=== PATIENT | female | born 1990 | race American Indian/Alaskan Native ===

== ENCOUNTER 2019-06-18 17:40 | Emergency (ER) | payer SELFPAY ==
[2019-06-18] MEDS ORDERED: diphenhydrAMINE 50 MG/ML VIAL IV ONE (17:48)
[2019-06-18] MEDS ORDERED: FAMOTIDINE 20 MG/2 ML INJ IV ONE (17:48)
[2019-06-18] MEDS ORDERED: dexAMETHasone 20 MG/5 ML VIAL IV ONE (17:48)
[2019-06-18] MEDS ORDERED: SODIUM CHLORIDE 0.9% 500 ML 500 ML IV ONE (17:48)
--- NOTE | 2019-06-18 17:51 | Event Note ---
ED Screening Note ED Screening Note: 29 y/o female comes in for urticaria times 3 weeks. History of HTN and multiple allergies. This initial assessment/diagnostic orders/clinical plan/treatment(s) is/are subject to change based on patients health status, clinical progression and re- assessment by fellow clinical providers in the ED. Further treatment and workup at subsequent clinical providers discretion. Patient/guardian urged not to elope from the ED as their condition may be serious if not clinically assessed and managed. Initial orders include: dex,pepcid benadryl and normal saline
[2019-06-18 19:12] LABS: Basophils % (Auto) 0.2 % (0.0-1.8); Eosinophils # (Auto) 0.3 K/mm3 (0.0-0.4); Hematocrit 35.2 % (30.3-42.9); Hemoglobin 11.6 gm/dl (10.1-14.3); Lymphocytes # (Auto) 1.5 K/mm3 (1.2-5.4); Lymphocytes % (Auto) 29.8 % (13.4-35.0); Mean Corpuscular HGB Conc 33 % (30-34); Mean Corpuscular Volume 82 fl (79-97); Monocytes # (Auto) 0.2 K/mm3 (0.0-0.8); Monocytes % (Auto) 4.7 % (0.0-7.3); Platelet Count 154 K/mm3 (140-440); Red Blood Count 4.31 M/mm3 (3.65-5.03); Red Cell Distribution Width 13.9 % (13.2-15.2)
--- NOTE | 2019-06-18 19:42 | Emergency Department Report ---
ED General Adult HPI - General Chief complaint: Allergic Reaction Stated complaint: CHEST PAIN, HIVE ALL OVER BODY FROM HEAD TO TOE Time Seen by Provider: 06/18/19 17:48 Source: patient Mode of arrival: Ambulatory Limitations: No Limitations - History of Present Illness Initial comments: Mr. Rock is a 29-year-old -[place] female with a history contact dermatitis. States rash, generalized x 3 weeks, hx of same 2 yrs ago, pt denies sob no wheezing. Has secondary complaint for vaginal yeast, white cottage cheese discharge. Onset/Timin -: week(s) Location: chest, back, upper extremity, lower extremity Severity scale (0 -10): 4 Quality: other (itching ) Consistency: constant Improves with: medication Worsens with: other (environmental exposure scratching ) Associated Symptoms: denies: fever/chills, headaches, nausea/vomiting, shortness of breath - Related Data Previous Rx's Medication Instructions Recorded Last Taken Type Famotidine [Pepcid] 20 mg PO BID #30 tablet 06/18/19 Unknown Rx Fexofenadine HCl [Rubi Allergy] 180 mg PO BID PRN #30 tablet 06/18/19 Unknown Rx Triamcinolone Aceton 0.1% (Nf) 1 applic TP BID #1 tube 06/18/19 Unknown Rx [Kenalog (NF)] metroNIDAZOLE [Flagyl] 500 mg PO Q12HR 7 Days #14 tab 06/18/19 Unknown Rx predniSONE [Deltasone] 40 mg PO QDAY #10 tab 06/18/19 Unknown Rx Allergies Allergy/AdvReac Type Severity Reaction Status Date / Time peanut Allergy Swelling Verified 06/18/19 17:45 sulfamethoxazole Allergy Swelling Verified 06/18/19 17:42 [From Bactrim] trimethoprim [From Bactrim] Allergy Swelling Verified 06/18/19 17:42 ED Review of Systems ROS: Stated complaint: CHEST PAIN, HIVE ALL OVER BODY FROM HEAD TO TOE Other details as noted in HPI Constitutional: denies: chills, fever Eyes: denies: eye pain, eye discharge, vision change ENT: denies: ear pain, throat pain Respiratory: no symptoms reported Cardiovascular: denies: chest pain, palpitations Endocrine: no symptoms reported Gastrointestinal: as per HPI Genitourinary: denies: urgency, dysuria, discharge Musculoskeletal: denies: back pain, joint swelling, arthralgia Skin: rash (hives, raised smooth, no open wounds no draingage no fever ). denies: lesions Neurological: denies: headache, weakness, paresthesias Psychiatric: denies: anxiety, depression Hematological/Lymphatic: denies: easy bleeding, easy bruising ED Past Medical Hx - Past Medical History Hx Hypertension: Yes - Surgical History Additional Surgical History: c sect x 2 - Social History Smoking Status: Current Every Day Smoker Substance Use Type: None - Medications Home Medications: Home Medications Medication Instructions Recorded Confirmed Last Taken Type Famotidine [Pepcid] 20 mg PO BID #30 tablet 06/18/19 Unknown Rx Fexofenadine HCl [Rubi Allergy] 180 mg PO BID PRN #30 tablet 06/18/19 Unknown Rx Triamcinolone Aceton 0.1% (Nf) 1 applic TP BID #1 tube 06/18/19 Unknown Rx [Kenalog (NF)] metroNIDAZOLE [Flagyl] 500 mg PO Q12HR 7 Days #14 tab 06/18/19 Unknown Rx predniSONE [Deltasone] 40 mg PO QDAY #10 tab 06/18/19 Unknown Rx ED Physical Exam - General Limitations: No Limitations General appearance: alert, in no apparent distress - Head Head exam: Present: atraumatic, normocephalic - Eye Eye exam: Present: normal appearance, PERRL, EOMI Pupils: Present: normal accommodation - ENT ENT exam: Present: normal orophraynx, mucous membranes moist, TM's normal bilaterally, normal external ear exam - Neck Neck exam: Present: normal inspection, full ROM. Absent: tenderness, lymphadenopathy - Respiratory Respiratory exam: Present: normal lung sounds bilaterally. Absent: respiratory distress, wheezes, rales, rhonchi, stridor - Cardiovascular Cardiovascular Exam: Present: regular rate, normal rhythm, normal heart sounds. Absent: systolic murmur, diastolic murmur, rubs, gallop - GI/Abdominal GI/Abdominal exam: Present: soft, normal bowel sounds. Absent: tenderness - Rectal Rectal exam: Present: deferred - Extremities Exam Extremities exam: Present: normal inspection - Back Exam Back exam: Present: normal inspection, full ROM. Absent: tenderness, rash noted - Neurological Exam Neurological exam: Present: alert, oriented X3, CN II-XII intact, normal gait - Psychiatric Psychiatric exam: Present: normal affect, normal mood - Skin Skin exam: Present: warm, dry, intact, normal color, rash (papular smooth uticaria, no weeping no open wound ) ED Course Vital Signs 06/18/19 20:11 Temperature 98 F Pulse Rate 87 Respiratory 20 Rate Blood Pressure 138/84 [Right] O2 Sat by Pulse 100 Oximetry ED Medical Decision Making - Lab Data Result diagrams: 06/18/19 19:02 Lab Results 06/18/19 Range/Units 19:02 WBC 5.0 (4.5-11.0) K/mm3 RBC 4.31 (3.65-5.03) M/mm3 Hgb 11.6 (10.1-14.3) gm/dl Hct 35.2 (30.3-42.9) % MCV 82 (79-97) fl MCH 27 L (28-32) pg MCHC 33 (30-34) % RDW 13.9 (13.2-15.2) % Plt Count 154 (140-440) K/mm3 Lymph % (Auto) 29.8 (13.4-35.0) % Coke % (Auto) 4.7 (0.0-7.3) % Eos % (Auto) 6.0 H (0.0-4.3) % Baso % (Auto) 0.2 (0.0-1.8) % Lymph # 1.5 (1.2-5.4) K/mm3 Coke # 0.2 (0.0-0.8) K/mm3 Eos # 0.3 (0.0-0.4) K/mm3 Baso # 0.0 (0.0-0.1) K/mm3 Seg Neutrophils % 59.3 (40.0-70.0) % Seg Neutrophils # 2.9 (1.8-7.7) K/mm3 - Medical Decision Making This is contact dermatitis, symptoms are improved with medications given in ed. pt is ambulatory in ed without increase in wheezing, plan: dc to self , refill prednisone, atarax, pepcid, triamcinolone oint, follow up with pcp in 2-3 days. Critical care attestation.: If time is entered above; I have spent that time in minutes in the direct care of this critically ill patient, excluding procedure time. ED Disposition Clinical Impression: Contact dermatitis Qualifiers: Contact dermatitis type: allergic Contact dermatitis trigger: unspecified trigger Qualified Code(s): L23.9 - Allergic contact dermatitis, unspecified cause Disposition: DC- TO HOME OR SELFCARE Is pt being admited?: No Does the pt Need Aspirin: No Condition: Stable Instructions: Contact Dermatitis (ED) Prescriptions: Fexofenadine HCl [Rubi Allergy] 180 mg PO BID PRN #30 tablet PRN Reason: itching allergies predniSONE [Deltasone] 40 mg PO QDAY #10 tab metroNIDAZOLE [Flagyl] 500 mg PO Q12HR 7 Days #14 tab Triamcinolone Aceton 0.1% (Nf) [Kenalog (NF)] 1 applic TP BID #1 tube Famotidine [Pepcid] 20 mg PO BID #30 tablet Referrals: [facility] [Outside] - 3-5 Days DONNELL WARNER MD [Staff Physician] - 3-5 Days Forms: Work/School Release Form(ED) Time of Disposition: 19:47
[2019-06-18 20:11] VITALS: BP 138/84
== END 2019-06-18 20:18 | disposition home or self-care (01) ==
LOC: ED 17:40
DX: L25.9 Unspecified contact dermatitis, unspecified cause (principal); I10 Essential (primary) hypertension; F17.200 Nicotine dependence, unspecified, uncomplicated; Z79.899 Other long term (current) drug therapy; Z88.8 Allergy status to other drugs, medicaments and biological substances
CPT/HCPCS: 36415; 85025; 96374; 96375; 99283; J1100; J1200

== ENCOUNTER 2019-07-11 11:16 | Emergency (ER) | payer SELFPAY ==
--- NOTE | 2019-07-11 11:26 | Emergency Department Report ---
Blank Doc - Documentation Documentation: 29-year-old female that presents with vaginal discharge and pelvic pain. This initial assessment/diagnostic orders/clinical plan/treatment(s) is/are subject to change based on patient's health status, clinical progression and re- assessment by fellow clinical providers in the ED. Further treatment and workup at subsequent clinical providers discretion. Patient/guardians urged not to elope from the ED as their condition may be serious if not clinically assessed and managed. Initial orders include: 1- Patient sent to [facility] for further evaluation and treatment 2- UA 3- pelvic exam to be done
[2019-07-11 12:26] LABS: Bacteria,Urine 1+ /HPF (Negative); Bilirubin,Urine NEG (Negative); Blood,Urine SM (Negative); Color,Urine Yellow (Yellow); Mucus,Urine FEW /HPF; Protein,Urine <15 mg/dL mg/dL (Negative); Urobilinogen,Urine < 2.0 mg/dL (<2.0)
[2019-07-11 12:27] LABS: HCG Qualitative,Urine Negative (Negative)
[2019-07-11] MEDS ORDERED: dexAMETHasone 20 MG/5 ML VIAL IV ONE (16:48)
[2019-07-11] MEDS ORDERED: diphenhydrAMINE 50 MG/ML VIAL IV ONE (16:48)
[2019-07-11] MEDS ORDERED: FAMOTIDINE 20 MG TAB PO ONE (16:50)
[2019-07-11] MEDS ORDERED: diphenhydrAMINE 50 MG/ML VIAL ONE (16:53)
[2019-07-11] MEDS ORDERED: dexAMETHasone 20 MG/5 ML VIAL ONE (16:53)
[2019-07-11] MEDS ORDERED: FAMOTIDINE 20 MG TAB ONE (16:53)
--- NOTE | 2019-07-11 16:57 | Emergency Department Report ---
ED Female HPI - General Chief complaint: Abdominal Pain Stated complaint: CHEST PAIN/ABD PX/HIVES Time Seen by Provider: 07/11/19 11:24 Source: patient Mode of arrival: Ambulatory Limitations: No Limitations - History of Present Illness Initial comments: 29-year-old -[place] female presents to the emergency room complaining of hives, chest pain and abdominal pain. Patient reports that she was here 3 weeks ago for the same complaint and was given steroids allergy medicine and Pepcid and reports that it had helped. Patient presents now with the same complaints. Patient also complains of vaginal discharge that has a pink tinge and having painful intercourse and pain with urination. Patient feels that her sexual partner is causing her to have hives and pelvic pain. Patient denies any nausea vomiting. Patient does report that she has a history of hypertension in triage blood pressure shows 139/110. Patient denies any headache shortness of breathing. Patient never followed up from her last visit. MD Complaint: vaginal discharge, dysuria, other (hives) Onset/Timin -: days(s) Location: suprapubic Radiation: non-radiating Severity: moderate Severity scale (0 -10): 7 Quality: aching Consistency: intermittent Worsens with: intercourse Are you Now?: No Associated Symptoms: vaginal discharge, vaginal bleeding, abdominal pain, dysuria. denies: nausea/vomiting, fever/chills, headaches, shortness of breath - Related Data Sexually active: Yes Previous Rx's Medication Instructions Recorded Last Taken Type Famotidine [Pepcid] 20 mg PO BID #30 tablet 06/18/19 Unknown Rx Fexofenadine HCl [Rubi Allergy] 180 mg PO BID PRN #30 tablet 06/18/19 Unknown Rx Triamcinolone Aceton 0.1% (Nf) 1 applic TP BID #1 tube 06/18/19 Unknown Rx [Kenalog (NF)] metroNIDAZOLE [Flagyl] 500 mg PO Q12HR 7 Days #14 tab 06/18/19 Unknown Rx Nitrofurantoin [place]/M-Cryst 100 mg PO Q12HR #14 capsule 07/11/19 Unknown Rx [Macrobid CAP] predniSONE [Deltasone] 40 mg PO QDAY #10 tab 07/11/19 Unknown Rx Allergies Allergy/AdvReac Type Severity Reaction Status Date / Time peanut Allergy Swelling Verified 07/11/19 11:20 sulfamethoxazole Allergy Swelling Verified 07/11/19 11:20 [From Bactrim] trimethoprim [From Bactrim] Allergy Swelling Verified 07/11/19 11:20 ED Review of Systems ROS: Stated complaint: CHEST PAIN/ABD PX/HIVES Other details as noted in HPI Comment: All other systems reviewed and negative ED Past Medical Hx - Past Medical History Hx Hypertension: Yes - Surgical History Additional Surgical History: c sect x 2 - Social History Smoking Status: Current Every Day Smoker Substance Use Type: Alcohol - Medications Home Medications: Home Medications Medication Instructions Recorded Confirmed Last Taken Type Famotidine [Pepcid] 20 mg PO BID #30 tablet 06/18/19 Unknown Rx Fexofenadine HCl [Rubi Allergy] 180 mg PO BID PRN #30 tablet 06/18/19 Unknown Rx Triamcinolone Aceton 0.1% (Nf) 1 applic TP BID #1 tube 06/18/19 Unknown Rx [Kenalog (NF)] metroNIDAZOLE [Flagyl] 500 mg PO Q12HR 7 Days #14 tab 06/18/19 Unknown Rx Nitrofurantoin [place]/M-Cryst 100 mg PO Q12HR #14 capsule 07/11/19 Unknown Rx [Macrobid CAP] predniSONE [Deltasone] 40 mg PO QDAY #10 tab 07/11/19 Unknown Rx ED Physical Exam - General Limitations: No Limitations General appearance: alert, in no apparent distress - Head Head exam: Present: atraumatic, normocephalic - Eye Eye exam: Present: normal appearance - ENT ENT exam: Present: mucous membranes moist - Respiratory Respiratory exam: Present: normal lung sounds bilaterally. Absent: respiratory distress - Cardiovascular Cardiovascular Exam: Present: regular rate, normal rhythm. Absent: systolic murmur, diastolic murmur, rubs, gallop - GI/Abdominal GI/Abdominal exam: Present: soft. Absent: distended, tenderness - External exam: Present: normal external exam Speculum exam: Present: other (Vaginal orifice and follow-up are dry). Absent: erythema, vaginal discharge, cervical discharge, foreign body Bi-manual exam: Present: normal bi-manual exam - Extremities Exam Extremities exam: Present: normal inspection - Back Exam Back exam: Present: normal inspection - Neurological Exam Neurological exam: Present: alert, oriented X3 - Psychiatric Psychiatric exam: Present: normal affect, normal mood - Skin Skin exam: Present: urticaria ED Course Vital Signs 07/11/19 11:24 Temperature 98.0 F Pulse Rate 89 Respiratory 18 Rate Blood Pressure 139/110 O2 Sat by Pulse 99 Oximetry Critical care attestation.: If time is entered above; I have spent that time in minutes in the direct care of this critically ill patient, excluding procedure time. ED Disposition Clinical Impression: Urticaria UTI (urinary tract infection) Qualifiers: Urinary tract infection type: site unspecified Hematuria presence: without hematuria Qualified Code(s): N39.0 - Urinary tract infection, site not specified Contact dermatitis Qualifiers: Contact dermatitis type: irritant Contact dermatitis trigger: unspecified trigger Qualified Code(s): L24.9 - Irritant contact dermatitis, unspecified cause Disposition: TO HOME OR SELFCARE Is pt being admited?: No Does the pt Need Aspirin: No Condition: Stable Instructions: Abdominal Pain (ED) Additional Instructions: You can take [id number] Zyrtec's or Claritin. Complete prednisone as prescribed. Take [id number] famotidine. Follow-up with a primary care provider to discuss allergy testing. Also follow-up with the [facility] for reoccurring urinary tract infections and vaginal discharge. Prescriptions: predniSONE [Deltasone] 40 mg PO QDAY #10 tab Nitrofurantoin [place]/M-Cryst [Macrobid CAP] 100 mg PO Q12HR #14 capsule Referrals: PRIMARY CAREMD [Primary Care Provider] - 3-5 Days CARISSA REESE MD [Staff Physician] - 3-5 Days DIVYA ESTEVES MD [Staff Physician] - 3-5 Days Forms: Work/School Release Form(ED)
[2019-07-11 18:25] VITALS: BP 119/66
== END 2019-07-11 18:25 | disposition home or self-care (01) ==
LOC: ED 11:16
DX: L50.9 Urticaria, unspecified (principal); L25.9 Unspecified contact dermatitis, unspecified cause; N39.0 Urinary tract infection, site not specified; I10 Essential (primary) hypertension; F17.200 Nicotine dependence, unspecified, uncomplicated; Z98.890 Other specified postprocedural states; Z79.899 Other long term (current) drug therapy; Z91.010 Allergy to peanuts; Z88.8 Allergy status to other drugs, medicaments and biological substances
CPT/HCPCS: 81001; 81025; 87086; 87591; 96374; 96375; 99284; J1100; J1200